=== PATIENT | female | born 1990 | race Hispanic/Latino ===

== ENCOUNTER 2018-10-22 04:40 | Inpatient (IN) | payer OTHER | END 2018-10-29 14:00 | disposition home or self-care (01) | LOC: EDH 04:40 → 3BH 10-24 18:42 → EDHIP 07:48 → 4BH 08:34 | DX: A41.9 Sepsis, unspecified organism (principal); K85.90 Acute pancreatitis without necrosis or infection, unspecified; Z68.41 Body mass index [BMI] 40.0-44.9, adult; E87.1 Hypo-osmolality and hyponatremia; Z68.42 Body mass index [BMI] 45.0-49.9, adult; K86.1 Other chronic pancreatitis; R65.10 Systemic inflammatory response syndrome (SIRS) of non-infectious origin without acute organ dysfunction; E66.01 Morbid (severe) obesity due to excess calories; E11.65 Type 2 diabetes mellitus with hyperglycemia; E78.1 Pure hyperglyceridemia ==

== ENCOUNTER 2019-11-15 09:30 | Inpatient (IN) | payer OTHER ==
[2019-11-15] VITALS (19 sets, daily range): BP systolic 118–152; BP diastolic 39–81
[~2019-11-15] VITALS: Ht 154.9 cm; Wt 107.6 kg
[~2019-11-15 09:30] MED LIST: ATOR40TA69 PO; FENO145T PO; GEMF600T PO; GLIP5TAB11 PO; HYDR-4030 PO; METO25 PO; SERT50TA12 PO; ZOLP5TAB8 PO
[2019-11-15] MEDS ORDERED: ONDANSETRON HCL 4 MG/2 ML VIAL ONE (10:03)
[2019-11-15] MEDS ORDERED: MORPHINE SULFATE 4 MG/1ML SYG ONE ×2 (10:03→11:04)
[2019-11-15 10:12] LABS: BASOPHILS % (AUTO) 0.3 % (0.0-5.0); EOSINOPHILS % (AUTO) 0.2 % (0.0-8.0); HEMATOCRIT 40.3 % (36-48); MEAN CORPUSCULAR HEMOGLOBIN 27.6 pg (27.0-33.0); MEAN CORPUSCULAR HGB CONC 35.7 g/dL (32.0-36.0); MEAN CORPUSCULAR VOLUME 77.2 fL (79-99); MONOCYTES % (AUTO) 4.6 % (3.0-13.0); NEUTROPHILS % (AUTO) 79.2 % (40.0-77.0); PLATELET COUNT (AUTO) 246 K/uL (130-400); RED BLOOD CELL COUNT(AUTO) 5.22 MIL/uL (4.00-5.50); RED CELL DISTRIBUTION WIDTH 15.2 % (11.0-15.5); WHITE BLOOD COUNT (AUTO) 11.6 K/uL (4.8-10.8)
[2019-11-15 10:15] LABS: APPEARANCE,URINE Clear (CLEAR); BILIRUBIN,URINE Negative (NEGATIVE); COLOR,URINE Yellow (YELLOW); GLUCOSE, URINE (UA) >=1000 mg/dL (NEGATIVE); KETONES,URINE 15 mg/dL (NEGATIVE); LEUKOCYTE ESTERASE ,URINE Negative (NEGATIVE); NITRATE,URINE Negative (NEGATIVE); OCCULT BLOOD,URINE Moderate (NEGATIVE); PROTEIN,URINE Negative (NEGATIVE); UROBILINOGEN,URINE 0.2 mg/dL (0.2-1.0)
[2019-11-15 10:24] LABS: BACTERIA,URINE Rare /HPF (None Seen); RBC,URINE 0-1 /HPF (0-1); SQUAMOUS EPITHELIAL CELL,UR Rare /HPF (0-2); WBC,URINE 0-1 /HPF (0-1)
[2019-11-15 10:25] LABS: HCG,QUAL RESULT NEGATIVE (NEGATIVE)
[2019-11-15 10:40] LABS: BILIRUBIN,TOTAL 0.7 mg/dL (0.2-1.0); POTASSIUM 4.1 mmol/L (3.5-5.1)
[2019-11-15 10:57] LABS: CHOLESTEROL 377 mg/dL (<200); LDL DIRECT 80 mg/dL (0-99)
[2019-11-15 10:58] LABS: CREATININE 0.6 mg/dL (0.5-1.5)
[2019-11-15 10:59] LABS: ALBUMIN 3.7 g/dL (3.5-5.0); TOTAL PROTEIN, SERUM 6.5 g/dL (6.0-8.3)
[2019-11-15] MEDS ORDERED: LORAZEPAM 2 MG/ML 1 ML VIAL ONE (11:04)
[2019-11-15 11:07] LABS: ABG OXYGEN SATURATION 79.3 % (95.0-99.0); BASE EXCESS,VENOUS BLOOD GAS -1.2 (-2.0-3.0); HCO3,VENOUS BLOOD GAS 23.9 (21.0-28.0); PCO2,VENOUS BLOOD GAS 41 (32-45)
[2019-11-15 11:34] LABS: HDL CHOLESTEROL 70 mg/dL (35-85); TRIGLYCERIDES 662 mg/dL (30-200)
[2019-11-15] MEDS ORDERED: INSULIN HUMULIN R 100 UNIT/ML 3ML ONE (11:47)
[2019-11-15] MEDS ORDERED: SODIUM CHLORIDE 0.9% 1000ML 1,000 ML IV SCH ×3 (12:09→13:59)
[2019-11-15] MEDS ORDERED: ONDANSETRON HCL 4 MG/2 ML VIAL IV PRN (12:15)
[2019-11-15] MEDS ORDERED: NITROGLYCERIN 0.4 MG SL TAB SL PRN (12:15)
[2019-11-15] MEDS ORDERED: ACETAMINOPHEN 325 MG TAB PO PRN (12:15)
[2019-11-15] MEDS ORDERED: LACTULOSE 20 GM/30 ML UDCUP PO PRN (12:15)
[2019-11-15] MEDS ORDERED: INSULIN HUMULIN R 100 UNIT/ML 3ML SQ SCH ×2 (13:00→16:30)
[2019-11-15] MEDS ORDERED: CALCIUM GLUCONATE 1 GM/10 ML VIAL IV SCH ×2 (13:00→18:00)
[2019-11-15] MEDS ORDERED: CALCIUM GLUCONATE 1 GM in SODIUM CHLORIDE 0.9% 50 ML IV SCH ×2 (13:15→18:00)
[2019-11-15] MEDS ORDERED: DEXTROSE 5 %-0.45 % NACL 1,000 ML IV PRN (13:59)
[2019-11-15] MEDS: SODIUM CHLORIDE 0.9% 1000ML 1,000 ML IV SCH ×2 (14:11→22:11)
[2019-11-15] MEDS ORDERED: PHARMACY COMMUNICATION MISC SCH ×2 (14:15)
[2019-11-15] MEDS ORDERED: DEXTROSE 50%-WATER 50 ML DISP.SYRIN IV PRN (14:15)
[2019-11-15] MEDS ORDERED: GLUCAGON 1MG KIT 1 MG ML IM PRN (14:15)
[2019-11-15] MEDS ORDERED: POTASSIUM CHLORIDE 10MEQ/100ML 100 ML IV PRN (14:15)
[2019-11-15] MEDS ORDERED: MORPHINE SULFATE 2 MG/ML 1ML SYG IVP PRN (14:30)
[2019-11-15 14:44] LABS: POTASSIUM 3.5 mmol/L (3.5-5.1)
[2019-11-15 14:50] LABS: ALCOHOL, BLOOD < 3 mg/dL (0-10); THYROID STIMULATING HORMONE 4.04 uIU/mL (0.36-3.74)
--- NOTE | 2019-11-15 15:00 | NUR ---
HAS RED BUMPS ON BILATERAL KNEES AND SURROUNDING AREA, ALSO BEHIND BOTH UPPER ARMS Addendum: 11/15/19 at 1609 by AKIN RODGERS RN RN Amended: Links added.
[2019-11-15] MEDS: [UNRECOGNIZED DRUG - MIXTURE] SQ PRN ×2 (15:11)
[2019-11-15 15:18] LABS: CREATININE 0.6 mg/dL (0.5-1.5)
[2019-11-15 15:28] LABS: HEMOGLOBIN A1C 14.2 % (4.0-6.0)
[2019-11-15] MEDS: KETOROLAC TROMETHAMINE 15MG/ML IV PRN (15:28)
[2019-11-15 15:33] LABS: MAGNESIUM 1.5 mg/dL (1.80-2.40); PHOSPHORUS 2.7 mg/dL (2.5-4.9)
[2019-11-15] MEDS ORDERED: MAGNESIUM 2GM PREMIX 50ML 50 ML IV SCH (16:15)
[2019-11-15] MEDS ORDERED: SERT100T12 PO (16:17)
--- NOTE | 2019-11-15 16:22 | NUR ---
INITIAL SW spoke with patient's mother, Amor Posada, [phone]. Patient lives with parents and 6 year old son. No home services or DME. 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 She is able to complete ADL's independently and drives as per patient's mother. Mother is not aware of patient having a PCP. Pharmacy is [facility] located on [facility] in [place]. DCP is home. Addendum: 11/15/19 at 1624 by FELIPE WILD Amended: Links added.
[2019-11-15] MEDS ORDERED: MAGNESIUM 2GM PREMIX 50ML 50 ML IV ONE (16:54)
[2019-11-15] MEDS: DEXTROSE 5 %-0.45 % NACL 1,000 ML IV PRN (17:11)
[2019-11-15] MEDS: HYDROMORPHONE HCL 2 MG/ML VIAL IVP PRN ×2 (18:23→23:19)
[2019-11-15 20:38] LABS: POTASSIUM 3.3 mmol/L (3.5-5.1)
[2019-11-15 20:39] LABS: CREATININE 0.4 mg/dL (0.5-1.5)
[2019-11-15] MEDS: FAMOTIDINE/PF 20 MG/2 ML VIAL IV SCH (21:15)
[2019-11-16] VITALS (31 sets, daily range): BP systolic 104–134; BP diastolic 50–85
[2019-11-16 00:31] LABS: CREATININE 0.5 mg/dL (0.5-1.5); POTASSIUM 3.2 mmol/L (3.5-5.1)
[2019-11-16] MEDS: POTASSIUM CHLORIDE 10MEQ/100ML 100 ML IV PRN ×5 (01:30→16:29)
[2019-11-16] MEDS: DEXTROSE 5 %-0.45 % NACL 1,000 ML IV PRN ×3 (01:36→16:02)
[2019-11-16] MEDS: HYDROMORPHONE HCL 2 MG/ML VIAL IVP PRN ×2 (02:23→06:16)
[2019-11-16 04:14] LABS: BASOPHILS % (AUTO) 0.3 % (0.0-5.0); EOSINOPHILS % (AUTO) 1.1 % (0.0-8.0); HEMATOCRIT 34.4 % (36-48); LYMPHOCYTES % (AUTO) 22.3 % (21.0-51.0); MEAN CORPUSCULAR HEMOGLOBIN 26.3 pg (27.0-33.0); MEAN CORPUSCULAR HGB CONC 32.8 g/dL (32.0-36.0); NEUTROPHILS % (AUTO) 69.5 % (40.0-77.0); PLATELET COUNT (AUTO) 173 K/uL (130-400); RED CELL DISTRIBUTION WIDTH 15.4 % (11.0-15.5); WHITE BLOOD COUNT (AUTO) 7.4 K/uL (4.8-10.8)
[2019-11-16 04:48] LABS: ALBUMIN 2.6 g/dL (3.5-5.0); BILIRUBIN,TOTAL 0.2 mg/dL (0.2-1.0); CREATININE 0.6 mg/dL (0.5-1.5); CRP QUANTITATIVE 167.1 mg/L (0.00-9.0); POTASSIUM 3.3 mmol/L (3.5-5.1); TOTAL PROTEIN, SERUM 6.4 g/dL (6.0-8.3)
[2019-11-16] MEDS: SODIUM CHLORIDE 0.9% 1000ML 1,000 ML IV SCH ×3 (06:11→22:11)
[2019-11-16] MEDS: [UNRECOGNIZED DRUG - MIXTURE] SQ PRN ×2 (08:12)
[2019-11-16] MEDS: ENOXAPARIN SODIUM 30 MG/0.3 ML SQ SCH (08:31)
[2019-11-16] MEDS: FAMOTIDINE/PF 20 MG/2 ML VIAL IV SCH ×2 (08:31→21:34)
[2019-11-16] MEDS: KETOROLAC TROMETHAMINE 15MG/ML IV PRN (10:07)
[2019-11-16] MEDS: HYDROMORPHONE 1 MG/1 ML AMP IVP PRN ×4 (10:35→23:02)
[2019-11-16 10:41] LABS: CREATININE 0.5 mg/dL (0.5-1.5); POTASSIUM 3.7 mmol/L (3.5-5.1)
[2019-11-16 14:29] LABS: CREATININE 0.6 mg/dL (0.5-1.5); POTASSIUM 3.4 mmol/L (3.5-5.1)
--- NOTE | 2019-11-16 15:15 | NUR ---
REC'D REPORT FROM JOAQUIN HICKS RN
[2019-11-16] MEDS ORDERED: POTASSIUM CHLORIDE 10MEQ/100ML 10 MEQ/100 ML ML IV SCH (16:15)
[2019-11-16] MEDS ORDERED: GEMFIBROZIL 600 MG TABLET PO SCH (16:30)
[2019-11-16] MEDS ORDERED: POTASSIUM CHLORIDE 40 MEQ in SODIUM CHLORIDE 0.9% 1000ML 980 ML IV SCH (17:00)
[2019-11-16] MEDS ORDERED: POTASSIUM CHLORIDE IV SCH (17:15)
[2019-11-16] MEDS ORDERED: DEXTROSE IV SCH (17:15)
[2019-11-16] MEDS ORDERED: NACL IV SCH (17:15)
[2019-11-16 18:22] LABS: CREATININE 0.6 mg/dL (0.5-1.5); POTASSIUM 3.6 mmol/L (3.5-5.1)
[2019-11-16] MEDS: FISH OIL 1000 MG/CAP PO SCH (21:34)
[2019-11-16 23:51] LABS: CREATININE 0.6 mg/dL (0.5-1.5); POTASSIUM 3.5 mmol/L (3.5-5.1)
[2019-11-17] VITALS (24 sets, daily range): BP systolic 102–143; BP diastolic 41–95
[2019-11-17] MEDS: DEXTROSE 5 %-0.45 % NACL 1,000 ML IV PRN ×4 (00:08→21:49)
[2019-11-17 04:24] LABS: BASOPHILS % (AUTO) 0.2 % (0.0-5.0); EOSINOPHILS % (AUTO) 1.2 % (0.0-8.0); HEMATOCRIT 31.7 % (36-48); LYMPHOCYTES % (AUTO) 27.3 % (21.0-51.0); MEAN CORPUSCULAR HEMOGLOBIN 25.3 pg (27.0-33.0); MEAN CORPUSCULAR HGB CONC 31.9 g/dL (32.0-36.0); MEAN CORPUSCULAR VOLUME 79.4 fL (79-99); MONOCYTES % (AUTO) 5.9 % (3.0-13.0); NEUTROPHILS % (AUTO) 64.9 % (40.0-77.0); PLATELET COUNT (AUTO) 150 K/uL (130-400); RED BLOOD CELL COUNT(AUTO) 3.99 MIL/uL (4.00-5.50); RED CELL DISTRIBUTION WIDTH 15.4 % (11.0-15.5)
[2019-11-17 04:48] LABS: ALBUMIN 2.3 g/dL (3.5-5.0); BILIRUBIN,TOTAL 0.2 mg/dL (0.2-1.0); CREATININE 0.6 mg/dL (0.5-1.5); POTASSIUM 3.2 mmol/L (3.5-5.1); TOTAL PROTEIN, SERUM 6.2 g/dL (6.0-8.3)
[2019-11-17] MEDS: SODIUM CHLORIDE 0.9% 1000ML 1,000 ML IV SCH ×3 (05:02→22:11)
[2019-11-17] MEDS: HYDROMORPHONE 1 MG/1 ML AMP IVP PRN ×5 (06:17→23:13)
[2019-11-17] MEDS: POTASSIUM CHLORIDE 10MEQ/100ML 100 ML IV PRN ×2 (06:20→08:30)
[2019-11-17] MEDS: ENOXAPARIN SODIUM 30 MG/0.3 ML SQ SCH (08:43)
[2019-11-17] MEDS: ATORVASTATIN CALCIUM 40 MG TABLET PO SCH (08:43)
[2019-11-17] MEDS: FAMOTIDINE/PF 20 MG/2 ML VIAL IV SCH ×2 (09:20→21:49)
[2019-11-17] MEDS: FISH OIL 1000 MG/CAP PO SCH ×2 (09:22→21:30)
[2019-11-17 11:59] LABS: CREATININE 0.6 mg/dL (0.5-1.5); POTASSIUM 3.8 mmol/L (3.5-5.1)
[2019-11-17] MEDS ORDERED: BENZOCAINE/MENTH/CETYLPYRD CL 1 EACH LOZENGE MM PRN (12:00)
[2019-11-17] MEDS: [UNRECOGNIZED DRUG - MIXTURE] SQ PRN ×2 (12:13)
--- NOTE | 2019-11-17 17:20 | NUR ---
DR FRANZ AT BEDSIDE, NEW ORDERS GIVEN TO CHANGE INSULIN DRIP TO 0.1 UNITS/KG/HR, EQUIVALENT TO 10.79 ML/HR, ORDERS GIVEN NOT TO TITRATE, KEEP AT THIS FIXED RATE
[2019-11-18] VITALS (22 sets, daily range): BP systolic 98–131; BP diastolic 6–79
[2019-11-18] MEDS: [UNRECOGNIZED DRUG - MIXTURE] SQ PRN ×4 (01:36→20:54)
[2019-11-18 03:50] LABS: BASOPHILS % (AUTO) 0.2 % (0.0-5.0); HEMATOCRIT 31.1 % (36-48); LYMPHOCYTES % (AUTO) 28.2 % (21.0-51.0); MEAN CORPUSCULAR HEMOGLOBIN 25.3 pg (27.0-33.0); MEAN CORPUSCULAR HGB CONC 31.5 g/dL (32.0-36.0); MEAN CORPUSCULAR VOLUME 80.4 fL (79-99); MONOCYTES % (AUTO) 5.4 % (3.0-13.0); NEUTROPHILS % (AUTO) 64.6 % (40.0-77.0); PLATELET COUNT (AUTO) 157 K/uL (130-400); RED BLOOD CELL COUNT(AUTO) 3.87 MIL/uL (4.00-5.50); RED CELL DISTRIBUTION WIDTH 15.3 % (11.0-15.5); WHITE BLOOD COUNT (AUTO) 5.2 K/uL (4.8-10.8)
[2019-11-18] MEDS: HYDROMORPHONE 1 MG/1 ML AMP IVP PRN ×3 (03:50→12:59)
[2019-11-18 04:12] LABS: ALBUMIN 2.1 g/dL (3.5-5.0); BILIRUBIN,TOTAL 0.2 mg/dL (0.2-1.0); CREATININE 0.6 mg/dL (0.5-1.5)
[2019-11-18] MEDS: POTASSIUM CHLORIDE 10MEQ/100ML 100 ML IV PRN ×2 (04:44→07:16)
--- NOTE | 2019-11-18 04:45 | NUR ---
HYPOKALEMIA PROTOCOL K+ this am at 3.0, started on hypokalemia protocol, 10meq kcl bag in 100 cc NS infused with the main IVF, pt to get 2 bags as per protocol.
[2019-11-18] MEDS: SODIUM CHLORIDE 0.9% 1000ML 1,000 ML IV SCH ×3 (06:11→22:11)
--- NOTE | 2019-11-18 06:39 | NUR ---
PATIENT UPDATE Pt continues to ask for pain meds consistently q 4 hrs. Pain mostly on the left lower quadrant radiating to the back. Keeping npo except for po meds. No nausea and vomiting, gets up to the bathroom per self. Continues on the insulin drip as ordered by Dr. Gomez at a set rate of 0.01 units per kg/hr until the triglycerides gets to be less than 500, today down to 959 fr 1,237 yesterday and with the lipase down to 269 this am from 943 yesterday.
[2019-11-18] MEDS: ATORVASTATIN CALCIUM 40 MG TABLET PO SCH (08:15)
[2019-11-18] MEDS: FISH OIL 1000 MG/CAP PO SCH ×2 (08:15→19:52)
[2019-11-18] MEDS: ENOXAPARIN SODIUM 30 MG/0.3 ML SQ SCH (08:15)
[2019-11-18] MEDS: DEXTROSE 5 %-0.45 % NACL 1,000 ML IV PRN ×3 (08:44→23:03)
[2019-11-18] MEDS: FAMOTIDINE/PF 20 MG/2 ML VIAL IV SCH ×2 (12:35→19:52)
[2019-11-18] MEDS ORDERED: HYDROMORPHONE 1 MG/1 ML AMP IVP PRN (15:30)
[2019-11-18] MEDS: GEMFIBROZIL 600 MG TABLET PO SCH (17:45)
[2019-11-18] MEDS ORDERED: KETOROLAC TROMETHAMINE 15MG/ML IV PRN (20:30)
[2019-11-18] MEDS: HYDROXYZINE HCL 25 MG TABLET PO SCH (21:00)
[2019-11-18] MEDS: ZOLPIDEM TARTRATE 5 MG TAB PO SCH (21:19)
[2019-11-18] MEDS: SERTRALINE HCL 50 MG TABLET PO SCH (21:19)
[2019-11-19] VITALS (24 sets, daily range): BP systolic 109–145; BP diastolic 56–89
[2019-11-19 06:11] LABS: BASOPHILS % (AUTO) 0.2 % (0.0-5.0); HEMATOCRIT 31.8 % (36-48); LYMPHOCYTES % (AUTO) 23.9 % (21.0-51.0); MEAN CORPUSCULAR HEMOGLOBIN 24.7 pg (27.0-33.0); MEAN CORPUSCULAR HGB CONC 31.1 g/dL (32.0-36.0); MEAN CORPUSCULAR VOLUME 79.3 fL (79-99); MONOCYTES % (AUTO) 6.4 % (3.0-13.0); NEUTROPHILS % (AUTO) 67.9 % (40.0-77.0); PLATELET COUNT (AUTO) 147 K/uL (130-400); RED BLOOD CELL COUNT(AUTO) 4.01 MIL/uL (4.00-5.50); RED CELL DISTRIBUTION WIDTH 15.2 % (11.0-15.5); WHITE BLOOD COUNT (AUTO) 4.8 K/uL (4.8-10.8)
[2019-11-19] MEDS: SODIUM CHLORIDE 0.9% 1000ML 1,000 ML IV SCH ×3 (06:11→21:29)
[2019-11-19 06:25] LABS: CREATININE 0.6 mg/dL (0.5-1.5)
[2019-11-19 06:30] LABS: POTASSIUM 2.9 mmol/L (3.5-5.1)
[2019-11-19] MEDS: GEMFIBROZIL 600 MG TABLET PO SCH ×2 (08:22→16:50)
[2019-11-19] MEDS: FISH OIL 1000 MG/CAP PO SCH ×2 (08:22→20:25)
[2019-11-19] MEDS: ATORVASTATIN CALCIUM 40 MG TABLET PO SCH (08:22)
[2019-11-19] MEDS: HYDROXYZINE HCL 25 MG TABLET PO SCH ×3 (08:23→20:25)
[2019-11-19] MEDS: FAMOTIDINE/PF 20 MG/2 ML VIAL IV SCH ×2 (08:23→20:30)
[2019-11-19] MEDS: POTASSIUM CHLORIDE 10MEQ/100ML 100 ML IV PRN ×2 (08:23→09:27)
[2019-11-19] MEDS: ENOXAPARIN SODIUM 30 MG/0.3 ML SQ SCH (08:23)
[2019-11-19] MEDS ORDERED: POTASSIUM CHLORIDE 20 MEQ ERTAB PO SCH (08:30)
[2019-11-19] MEDS ORDERED: MAGNESIUM 2GM PREMIX 50ML 50 ML IV PRN (09:30)
[2019-11-19] MEDS: DEXTROSE 5 %-0.45 % NACL 1,000 ML IV PRN ×2 (10:05→18:17)
[2019-11-19 12:45] LABS: POTASSIUM 3.5 mmol/L (3.5-5.1)
--- NOTE | 2019-11-19 19:30 | NUR ---
PT CONTINUES ON INSULIN DRIP. AAO3. PERRLA. NO DISTRESS NOTED. PT IS STABLE. Q2 BLOOD SUGAR CHECKS. CLEAR LUNG SOUNDS. PT IS CALM, AND WATCHING TV. NPO EXCEPT MEDS.
[2019-11-19] MEDS: SERTRALINE HCL 50 MG TABLET PO SCH (20:25)
[2019-11-19] MEDS: ZOLPIDEM TARTRATE 5 MG TAB PO SCH (20:25)
[2019-11-20] VITALS (17 sets, daily range): BP systolic 119–150; BP diastolic 63–87
[2019-11-20] MEDS: DEXTROSE 5 %-0.45 % NACL 1,000 ML IV PRN ×2 (02:48→10:56)
[2019-11-20] MEDS: [UNRECOGNIZED DRUG - MIXTURE] SQ PRN ×2 (03:24)
[2019-11-20] MEDS: GEMFIBROZIL 600 MG TABLET PO SCH (06:45)
[2019-11-20] MEDS: HYDROXYZINE HCL 25 MG TABLET PO SCH ×3 (08:02→21:04)
[2019-11-20] MEDS: ATORVASTATIN CALCIUM 40 MG TABLET PO SCH (08:02)
[2019-11-20] MEDS: FISH OIL 1000 MG/CAP PO SCH ×2 (08:02→21:03)
[2019-11-20] MEDS: FAMOTIDINE/PF 20 MG/2 ML VIAL IV SCH ×2 (08:04→21:03)
[2019-11-20] MEDS: ENOXAPARIN SODIUM 30 MG/0.3 ML SQ SCH (08:04)
--- NOTE | 2019-11-20 09:30 | NUR ---
DR. Jyotsna MANE IN ROOM SPEAKING WITH PT. RE:PLAN OF CARE; QUESTIONS ANSWERED BY DR. MANE. PT. VERBALIZED UNDERSTANDING.
--- NOTE | 2019-11-20 10:50 | NUR ---
DR. WELLINGTON IN ROOM SPEAKING WITH PT. RE:PLAN OF CARE. QUESTIONS ANSWERED AND PT. VERBALIZED UNDERSTANDING.
[2019-11-20] MEDS: INSULIN GLARGINE 100 UNITS/ML 10 ML VIAL SQ SCH (13:01)
[2019-11-20] MEDS: INSULIN LISPRO 100 UNIT/ML 3ML SQ SCH (17:22)
--- NOTE | 2019-11-20 17:26 | NUR ---
REPORT TO Cleo ROSAS RN.
--- NOTE | 2019-11-20 17:58 | NUR ---
TRANSFERRED TO ROOM 326 VIA W/C WITH BELONGINGS. ACCOMPANIED BY Ted HICKS RN AND JOSE R BAPTISTE.
[2019-11-20] MEDS: SERTRALINE HCL 50 MG TABLET PO SCH (21:03)
[2019-11-20] MEDS: ZOLPIDEM TARTRATE 5 MG TAB PO SCH (21:04)
[2019-11-21] VITALS (7 sets, daily range): BP systolic 110–132; BP diastolic 70–84
[2019-11-21] MEDS: ATORVASTATIN CALCIUM 40 MG TABLET PO SCH (08:02)
[2019-11-21] MEDS: FISH OIL 1000 MG/CAP PO SCH ×2 (08:02→20:03)
[2019-11-21] MEDS: FAMOTIDINE/PF 20 MG/2 ML VIAL IV SCH ×2 (08:02→20:02)
[2019-11-21] MEDS: ENOXAPARIN SODIUM 30 MG/0.3 ML SQ SCH (08:03)
[2019-11-21] MEDS: INSULIN GLARGINE 100 UNITS/ML 10 ML VIAL SQ SCH (08:09)
[2019-11-21] MEDS: HYDROXYZINE HCL 25 MG TABLET PO SCH ×3 (08:13→20:03)
[2019-11-21] MEDS: FENOFIBRATE NANOCRYSTALLIZED 145 MG TAB PO SCH (08:14)
[2019-11-21] MEDS: INSULIN LISPRO 100 UNIT/ML 3ML SQ SCH ×3 (08:41→16:56)
[2019-11-21] MEDS: INSULIN HUMULIN R 100 UNIT/ML 3ML SQ SCH ×3 (11:30→20:03)
--- NOTE | 2019-11-21 14:47 | NUR ---
RY SCREEN - LOS X 6 Pt admitted for acute pancreatitis, hypertriglyceridemia. Pt tolerating Clear Liquid diet order with no report of GI distress, fair PO intake at 50%, felt full. Pt refusal of nutrition education, desires to follow keto diet. Low fat recommended with pancreatitis. Recommend to advance as tolerated to GI soft/[place], 75gm, Low fat diet order. RD to continue to monitor. Addendum: 11/21/19 at [address] RD Amended: Links added.
--- NOTE | 2019-11-21 14:55 | NUR ---
NUTRITION EDUCATION RD attempt to provided Pancreatitis, Diabetes, Weight loss nutrition education. Pt refusal of nutrition education, and states will follow Ketogenic diet, monitored by MD. RD recommendation of low fat foods with pancreatitis. Pt verbalized understanding. Addendum: 11/21/19 at [address] RD Amended: Links added.
[2019-11-21 17:07] LABS: BASOPHILS % (AUTO) 0.6 % (0.0-5.0); HEMATOCRIT 34.8 % (36-48); LYMPHOCYTES % (AUTO) 30.8 % (21.0-51.0); MEAN CORPUSCULAR HEMOGLOBIN 25.2 pg (27.0-33.0); MEAN CORPUSCULAR HGB CONC 31.9 g/dL (32.0-36.0); MEAN CORPUSCULAR VOLUME 78.9 fL (79-99); NEUTROPHILS % (AUTO) 59.2 % (40.0-77.0); PLATELET COUNT (AUTO) 179 K/uL (130-400); RED BLOOD CELL COUNT(AUTO) 4.41 MIL/uL (4.00-5.50)
[2019-11-21 17:32] LABS: ALBUMIN 2.8 g/dL (3.5-5.0); BILIRUBIN,TOTAL 0.4 mg/dL (0.2-1.0); MAGNESIUM 1.5 mg/dL (1.80-2.40); PHOSPHORUS 5.7 mg/dL (2.5-4.9); POTASSIUM 3.8 mmol/L (3.5-5.1); TOTAL PROTEIN, SERUM 7.1 g/dL (6.0-8.3)
[2019-11-21 17:40] LABS: CREATININE 0.7 mg/dL (0.5-1.5)
[2019-11-21] MEDS: SERTRALINE HCL 50 MG TABLET PO SCH (20:03)
[2019-11-21] MEDS: ZOLPIDEM TARTRATE 5 MG TAB PO SCH (20:03)
[2019-11-21] MEDS: HYDROMORPHONE 1 MG/1 ML AMP IVP PRN ×2 (20:09→23:32)
[2019-11-22] MEDS: HYDROMORPHONE 1 MG/1 ML AMP IVP PRN (03:05)
[2019-11-22 04:01] VITALS: BP 133/70
[2019-11-22] MEDS: INSULIN HUMULIN R 100 UNIT/ML 3ML SQ SCH ×2 (04:51→11:27)
[2019-11-22 07:30] VITALS: BP 138/77
[2019-11-22] MEDS: FISH OIL 1000 MG/CAP PO SCH (08:41)
[2019-11-22] MEDS: FENOFIBRATE NANOCRYSTALLIZED 145 MG TAB PO SCH (08:41)
[2019-11-22] MEDS: ENOXAPARIN SODIUM 30 MG/0.3 ML SQ SCH (08:41)
[2019-11-22] MEDS: ATORVASTATIN CALCIUM 40 MG TABLET PO SCH (08:41)
[2019-11-22] MEDS: HYDROXYZINE HCL 25 MG TABLET PO SCH ×2 (08:41→14:12)
[2019-11-22] MEDS: FAMOTIDINE/PF 20 MG/2 ML VIAL IV SCH (08:41)
[2019-11-22] MEDS: INSULIN LISPRO 100 UNIT/ML 3ML SQ SCH ×2 (08:48→12:02)
[2019-11-22] MEDS ORDERED: INSULIN GLARGINE 100 UNITS/ML 10 ML VIAL SQ SCH (09:00)
[2019-11-22 11:00] VITALS: BP 128/69
[2019-11-22] MEDS ORDERED: INSU3INS3 SQ (11:33)
[2019-11-22] MEDS ORDERED: INSU100I3 SQ (11:33)
[2019-11-22] MEDS ORDERED: FENO145T PO (11:33)
[2019-11-22] MEDS ORDERED: FISH1CAP20 PO (11:33)
[2019-11-22] MEDS ORDERED: ATOR40TA69 PO (11:33)
--- NOTE | 2019-11-22 16:20 | NUR ---
PATIENT DISCHARGE PATIENT DISCHARGED, IV X2 DISCONTINUED, CATHLON INTACT, BLEEDING CONTROLLED, PATIENT TOLERATED WITHOUT INCIDENT.
== END 2019-11-22 16:45 | disposition home or self-care (01) | DRG 438 ==
LOC: EDH 09:30 → EDHIP 12:09 → 2DH 13:50 → 2BH 14:41 → DAHIP 11-16 15:29 → 3DH 11-20 17:36
PROVIDERS: ADMIT Internal Medicine; ATTEND Internal Medicine
DX: K85.90 Acute pancreatitis without necrosis or infection, unspecified (principal); E11.10 Type 2 diabetes mellitus with ketoacidosis without coma; Z68.41 Body mass index [BMI] 40.0-44.9, adult; E87.1 Hypo-osmolality and hyponatremia; K76.0 Fatty (change of) liver, not elsewhere classified; R16.2 Hepatomegaly with splenomegaly, not elsewhere classified; F41.8 Other specified anxiety disorders; D72.828 Other elevated white blood cell count; E66.01 Morbid (severe) obesity due to excess calories; E78.00 Pure hypercholesterolemia, unspecified; E78.1 Pure hyperglyceridemia; E78.49 Other hyperlipidemia; E83.51 Hypocalcemia; E86.1 Hypovolemia; I10 Essential (primary) hypertension; K86.1 Other chronic pancreatitis; Z79.4 Long term (current) use of insulin; Z79.84 Long term (current) use of oral hypoglycemic drugs; Z79.899 Other long term (current) drug therapy; Z91.19 Patient's noncompliance with other medical treatment and regimen; Z90.49 Acquired absence of other specified parts of digestive tract; Z83.3 Family history of diabetes mellitus
CPT/HCPCS: 36415; 36600; 74176; 76705; 80048; 80053; 80061; 81001; 81025; 82010; 82150; 82435; 82803; 82947; 82948; 83036; 83605; 83690; 83735; 83970; 84100; 84132; 84145; 84295; 84443; 84478; 85025; 86140; G0378; G0480; J0610; J1170; J1650; J1815; J1885; J2060; J2270; J2405; J3475; J3480; J3490; J7030; J7042

== ENCOUNTER 2020-04-03 15:56 | Inpatient (IN) | payer OTHER ==
[~2020-04-03] VITALS: Ht 154.9 cm; Wt 107.0 kg
[~2020-04-03 15:56] MED LIST changes: +FISH1CAP20 PO; -GEMF600T PO; -GLIP5TAB11 PO; +INSU100I3 SQ; +INSU3INS3 SQ; -METO25 PO; +SERT100T12 PO; -SERT50TA12 PO
[2020-04-03] MEDS ORDERED: ONDANSETRON HCL 4 MG/2 ML VIAL ONE (16:33)
[2020-04-03] MEDS ORDERED: MORPHINE SULFATE 4 MG/1ML SYG ONE ×2 (16:33→19:06)
[2020-04-03 17:14] LABS: POTASSIUM 3.3 mmol/L (3.5-5.1)
[2020-04-03 17:18] LABS: BASOPHILS % (AUTO) 0.4 % (0.0-5.0); EOSINOPHILS % (AUTO) 0.7 % (0.0-8.0); HEMATOCRIT 40.8 % (36-48); LYMPHOCYTES % (AUTO) 20.8 % (21.0-51.0); MEAN CORPUSCULAR HEMOGLOBIN 24.9 pg (27.0-33.0); MEAN CORPUSCULAR HGB CONC 33.1 g/dL (32.0-36.0); MEAN CORPUSCULAR VOLUME 75.1 fL (79-99); MONOCYTES % (AUTO) 4.5 % (3.0-13.0); NEUTROPHILS % (AUTO) 72.3 % (40.0-77.0); RED BLOOD CELL COUNT(AUTO) 5.43 MIL/uL (4.00-5.50); RED CELL DISTRIBUTION WIDTH 17.4 % (11.0-15.5); WHITE BLOOD COUNT (AUTO) 17.5 K/uL (4.8-10.8)
[2020-04-03 17:19] LABS: PLATELET COUNT (AUTO) 486 K/uL (130-400)
[2020-04-03 18:19] LABS: BILIRUBIN,DIRECT 0.1 mg/dL (0.0-0.3); BILIRUBIN,TOTAL 0.2 mg/dL (0.2-1.0)
[2020-04-03 18:20] LABS: ALBUMIN 3.5 g/dL (3.5-5.0); TOTAL PROTEIN, SERUM 6.6 g/dL (6.0-8.3)
[2020-04-03 18:27] LABS: CREATININE 0.4 mg/dL (0.5-1.5)
[2020-04-03] MEDS ORDERED: POTASSIUM CHLORIDE 20MEQ/100ML 100 ML IV ONE (18:27)
[2020-04-03] MEDS ORDERED: LIDOCAINE HCL-MPF 1% 2ML VIAL ONE (18:28)
[2020-04-03] MEDS ORDERED: INSULIN HUMULIN R 100 UNIT/ML 3ML ONE ×2 (18:28→21:02)
[2020-04-03] MEDS ORDERED: MAGNESIUM 2GM PREMIX 50ML 50 ML IV ONE (19:01)
[2020-04-03 19:10] LABS: APPEARANCE,URINE Cloudy (CLEAR); BILIRUBIN,URINE Negative (NEGATIVE); COLOR,URINE Yellow (YELLOW); GLUCOSE, URINE (UA) >=1000 mg/dL (NEGATIVE); KETONES,URINE >=80 mg/dL (NEGATIVE); LEUKOCYTE ESTERASE ,URINE Negative (NEGATIVE); NITRATE,URINE Negative (NEGATIVE); OCCULT BLOOD,URINE Negative (NEGATIVE); PROTEIN,URINE 300 mg/dL (NEGATIVE)
[2020-04-03 19:16] LABS: HCG,QUAL RESULT NEGATIVE (NEGATIVE)
[2020-04-03 19:21] LABS: BACTERIA,URINE Few /HPF (None Seen)
[2020-04-03 19:22] LABS: MUCUS,URINE Few LPF (None Seen); SQUAMOUS EPITHELIAL CELL,UR Moderate /HPF (0-2)
[2020-04-03] MEDS ORDERED: IOHEXOL-350 75 ML VIAL IV ONE (19:29)
[2020-04-03] MEDS ORDERED: LACTATED RINGERS 1000ML 1,000 ML IV SCH (19:51)
[2020-04-03] MEDS ORDERED: HYDROMORPHONE HCL 2 MG/ML VIAL IVP PRN (20:00)
[2020-04-03] MEDS: CEFTRIAXONE SODIUM 1 GM IV SCH (20:00)
[2020-04-03] MEDS: METRONIDAZOLE 500MG/100ML BAG 100 ML IV SCH (20:00)
[2020-04-03] MEDS ORDERED: HYDROMORPHONE 1 MG/1 ML AMP ONE ×2 (20:03→23:36)
[2020-04-03] MEDS: LACTATED RINGERS 1000ML 1,000 ML IV SCH (20:15)
[2020-04-03] MEDS ORDERED: FAMOTIDINE/PF 20 MG/2 ML VIAL IV ONE (20:54)
[2020-04-03] MEDS ORDERED: METRONIDAZOLE 500MG/100ML BAG 100 ML ONE (20:54)
[2020-04-03] MEDS ORDERED: CEFTRIAXONE SODIUM 1 GM ONE (20:54)
[2020-04-03] MEDS: ZOLPIDEM TARTRATE 5 MG TAB PO SCH (21:00)
[2020-04-03] MEDS: FAMOTIDINE/PF 20 MG/2 ML VIAL IV SCH (21:00)
[2020-04-03] MEDS ORDERED: ZOLPIDEM TARTRATE 5 MG TAB ONE (21:29)
[2020-04-03 22:46] LABS: POTASSIUM 3.4 mmol/L (3.5-5.1)
[2020-04-04] VITALS (7 sets, daily range): BP systolic 119–143; BP diastolic 70–78
[2020-04-04] MEDS: LACTATED RINGERS 1000ML 1,000 ML IV SCH ×2 (00:15→06:13)
[2020-04-04 00:36] LABS: CREATININE 0.5 mg/dL (0.5-1.5)
[2020-04-04] MEDS: INSULIN HUMULIN R 100 UNIT/ML 3ML SQ SCH ×5 (01:10→23:34)
[2020-04-04] MEDS: HYDROMORPHONE HCL 2 MG/ML VIAL IVP PRN ×6 (03:22→23:35)
[2020-04-04 05:58] LABS: HEMATOCRIT 37.7 % (36-48); MEAN CORPUSCULAR HEMOGLOBIN 27.8 pg (27.0-33.0); MEAN CORPUSCULAR HGB CONC 37.4 g/dL (32.0-36.0); MEAN CORPUSCULAR VOLUME 74.4 fL (79-99); RED BLOOD CELL COUNT(AUTO) 5.07 MIL/uL (4.00-5.50); RED CELL DISTRIBUTION WIDTH 17.4 % (11.0-15.5); WHITE BLOOD COUNT (AUTO) 9.7 K/uL (4.8-10.8)
[2020-04-04] MEDS: METRONIDAZOLE 500MG/100ML BAG 100 ML IV SCH ×3 (06:18→19:25)
[2020-04-04 06:35] LABS: ALBUMIN 2.4 g/dL (3.5-5.0); BILIRUBIN,TOTAL 0.6 mg/dL (0.2-1.0); MAGNESIUM 1.7 mg/dL (1.80-2.40); POTASSIUM 3.4 mmol/L (3.5-5.1)
[2020-04-04 07:24] LABS: CREATININE 0.4 mg/dL (0.5-1.5); TOTAL PROTEIN, SERUM 5.9 g/dL (6.0-8.3)
[2020-04-04] MEDS: SODIUM CHLORIDE 0.9% 1000ML 1,000 ML IV SCH ×2 (08:58→16:03)
[2020-04-04] MEDS: FAMOTIDINE/PF 20 MG/2 ML VIAL IV SCH ×2 (08:58→19:25)
[2020-04-04] MEDS: SERTRALINE HCL 50 MG TABLET PO SCH (09:00)
[2020-04-04] MEDS: ONDANSETRON HCL 4 MG/2 ML VIAL IVP PRN ×2 (10:12→19:25)
--- NOTE | 2020-04-04 16:27 | NUR ---
CM NOTE/IA PER PATIENT, LIVES WITH FAMILY, INDEPENDENT WITH ADLS, NO USE OF DME OR HOME HEALTH, HAS USE OF [facility] [address] AND FEELS SAFE TO RETURN HOME ONCE DISCHARGED. Addendum: 04/05/20 at 0923 by ROBERTO HICKS RN CM Amended: Links added.
[2020-04-04] MEDS: CEFTRIAXONE SODIUM 1 GM IV SCH (19:25)
[2020-04-04] MEDS ORDERED: INSULIN GLARGINE 100 UNITS/ML 10 ML VIAL SQ SCH (21:00)
[2020-04-04] MEDS: ZOLPIDEM TARTRATE 5 MG TAB PO SCH (21:26)
[2020-04-05] MEDS: SODIUM CHLORIDE 0.9% 1000ML 1,000 ML IV SCH ×3 (03:00→17:33)
[2020-04-05] MEDS: HYDROMORPHONE HCL 2 MG/ML VIAL IVP PRN (03:52)
[2020-04-05 04:23] VITALS: BP 132/74
[2020-04-05] MEDS: METRONIDAZOLE 500MG/100ML BAG 100 ML IV SCH ×3 (05:28→20:39)
[2020-04-05] MEDS: INSULIN HUMULIN R 100 UNIT/ML 3ML SQ SCH ×3 (06:24→17:32)
[2020-04-05 07:23] LABS: BILIRUBIN,TOTAL 0.3 mg/dL (0.2-1.0); CREATININE 0.4 mg/dL (0.5-1.5); TOTAL PROTEIN, SERUM 6.3 g/dL (6.0-8.3)
[2020-04-05 07:30] VITALS: BP 127/76
[2020-04-05 07:32] LABS: HEMOGLOBIN A1C 13.6 % (4.0-6.0); POTASSIUM 2.9 mmol/L (3.5-5.1)
[2020-04-05 07:45] LABS: BASOPHILS % (AUTO) 0.3 % (0.0-5.0); EOSINOPHILS % (AUTO) 0.3 % (0.0-8.0); HEMATOCRIT 30.1 % (36-48); LYMPHOCYTES % (AUTO) 14.8 % (21.0-51.0); MEAN CORPUSCULAR HEMOGLOBIN 25.4 pg (27.0-33.0); MEAN CORPUSCULAR HGB CONC 34.6 g/dL (32.0-36.0); MEAN CORPUSCULAR VOLUME 73.4 fL (79-99); MONOCYTES % (AUTO) 3.8 % (3.0-13.0); NEUTROPHILS % (AUTO) 80.3 % (40.0-77.0); PLATELET COUNT (AUTO) 270 K/uL (130-400); RED CELL DISTRIBUTION WIDTH 16.7 % (11.0-15.5); WHITE BLOOD COUNT (AUTO) 7.6 K/uL (4.8-10.8)
[2020-04-05] MEDS: HYDROMORPHONE 1 MG/1 ML AMP IVP PRN ×4 (07:52→20:40)
[2020-04-05] MEDS: FAMOTIDINE/PF 20 MG/2 ML VIAL IV SCH ×2 (07:52→20:40)
[2020-04-05] MEDS: SERTRALINE HCL 50 MG TABLET PO SCH (09:00)
[2020-04-05 11:00] VITALS: BP 127/78
[2020-04-05] MEDS ORDERED: LIDOCAINE HCL-MPF 1% 2ML VIAL IV PRN (11:15)
[2020-04-05] MEDS: POTASSIUM CHLORIDE 20MEQ/100ML 100 ML IV PRN ×3 (11:49→22:01)
[2020-04-05 16:00] VITALS: BP 126/72
[2020-04-05 20:29] VITALS: BP 124/70
[2020-04-05] MEDS: CEFTRIAXONE SODIUM 1 GM IV SCH (20:40)
[2020-04-05] MEDS: ZOLPIDEM TARTRATE 5 MG TAB PO SCH (20:40)
--- NOTE | 2020-04-05 22:45 | NUR ---
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 PT CURRENTLY HAS IV BAG OF POTASSIUM INFUSING PER MAR. PENDING ONCALL TO RETURN PAGE.
[2020-04-05 23:41] VITALS: BP 133/68
[2020-04-06] MEDS: INSULIN HUMULIN R 100 UNIT/ML 3ML SQ SCH ×4 (00:05→18:00)
[2020-04-06] MEDS: HYDROMORPHONE HCL 2 MG/ML VIAL IVP PRN ×3 (00:09→13:52)
[2020-04-06] MEDS: METRONIDAZOLE 500MG/100ML BAG 100 ML IV SCH ×3 (03:29→20:27)
[2020-04-06] MEDS: POTASSIUM CHLORIDE 20MEQ/100ML 100 ML IV PRN (03:30)
[2020-04-06 03:33] VITALS: BP 116/70
[2020-04-06] MEDS: HYDROMORPHONE 1 MG/1 ML AMP IVP PRN ×3 (03:48→22:37)
--- NOTE | 2020-04-06 04:34 | NUR ---
PAIN HAS BEEN REPORTED THROUGHOUT THE NIGHT. PT REPORTS ONLY TEMPORARY RELIEF FOR A SHORT WHILE BEFORE PAIN RETURNS. PAIN LOCATED IN THE ABD, GENERAL NON-SPECIFIC. PAIN LEVEL FROM 5-9.
[2020-04-06 05:49] LABS: ALBUMIN 1.8 g/dL (3.5-5.0); BILIRUBIN,TOTAL 0.3 mg/dL (0.2-1.0); TOTAL PROTEIN, SERUM 6.5 g/dL (6.0-8.3)
[2020-04-06] MEDS: SODIUM CHLORIDE 0.9% 1000ML 1,000 ML IV SCH ×4 (05:59→20:28)
[2020-04-06 07:08] LABS: BASOPHILS % (AUTO) 0.2 % (0.0-5.0); EOSINOPHILS % (AUTO) 0.8 % (0.0-8.0); HEMATOCRIT 27.5 % (36-48); LYMPHOCYTES % (AUTO) 18.5 % (21.0-51.0); MEAN CORPUSCULAR HEMOGLOBIN 24.6 pg (27.0-33.0); MEAN CORPUSCULAR HGB CONC 32.4 g/dL (32.0-36.0); MONOCYTES % (AUTO) 5.2 % (3.0-13.0); NEUTROPHILS % (AUTO) 74.5 % (40.0-77.0); PLATELET COUNT (AUTO) 134 K/uL (130-400); RED BLOOD CELL COUNT(AUTO) 3.62 MIL/uL (4.00-5.50); RED CELL DISTRIBUTION WIDTH 16.6 % (11.0-15.5)
[2020-04-06 08:00] VITALS: BP 121/74
[2020-04-06] MEDS ORDERED: MAGNESIUM 2GM PREMIX 50ML 50 ML IV PRN (08:15)
[2020-04-06 09:34] LABS: CREATININE 0.5 mg/dL (0.5-1.5)
[2020-04-06] MEDS: SERTRALINE HCL 50 MG TABLET PO SCH (09:45)
[2020-04-06] MEDS: POTASSIUM CHLORIDE 10% ELIXIR 20 MEQ/15 ML UDCUP PO PRN ×4 (09:46→22:46)
[2020-04-06 12:00] VITALS: BP 119/59
[2020-04-06] MEDS: FAMOTIDINE/PF 20 MG/2 ML VIAL IV SCH ×2 (13:05→20:27)
[2020-04-06 16:00] VITALS: BP 126/64
[2020-04-06] MEDS: CEFTRIAXONE SODIUM 1 GM IV SCH (20:27)
[2020-04-06] MEDS: FENOFIBRATE NANOCRYSTALLIZED 145 MG TAB PO SCH (20:28)
[2020-04-06 21:11] VITALS: BP 132/58
[2020-04-06] MEDS: ZOLPIDEM TARTRATE 5 MG TAB PO SCH (22:34)
[2020-04-06 23:58] VITALS: BP 136/74
[2020-04-07] MEDS: POTASSIUM CHLORIDE 10% ELIXIR 20 MEQ/15 ML UDCUP PO PRN ×3 (00:24→18:09)
[2020-04-07] MEDS: HYDROMORPHONE 1 MG/1 ML AMP IVP PRN ×3 (02:58→11:57)
[2020-04-07] MEDS: SODIUM CHLORIDE 0.9% 1000ML 1,000 ML IV SCH ×3 (02:59→15:12)
[2020-04-07 03:50] VITALS: BP 130/92
[2020-04-07] MEDS: METRONIDAZOLE 500MG/100ML BAG 100 ML IV SCH ×3 (04:19→20:53)
[2020-04-07 05:39] LABS: ALBUMIN 1.9 g/dL (3.5-5.0); BILIRUBIN,DIRECT 0.1 mg/dL (0.0-0.3); BILIRUBIN,TOTAL 0.5 mg/dL (0.2-1.0); TOTAL PROTEIN, SERUM 5.9 g/dL (6.0-8.3)
[2020-04-07] MEDS: INSULIN HUMULIN R 100 UNIT/ML 3ML SQ SCH ×4 (06:14→20:59)
[2020-04-07] MEDS: FAMOTIDINE/PF 20 MG/2 ML VIAL IV SCH ×2 (07:44→21:01)
[2020-04-07] MEDS: SERTRALINE HCL 50 MG TABLET PO SCH (07:45)
[2020-04-07 08:00] VITALS: BP 144/87
[2020-04-07 12:00] VITALS: BP 131/80
[2020-04-07 16:00] VITALS: BP 130/85
[2020-04-07] MEDS: OXYCODONE/ACETAMIN 5/325MG TAB PO PRN (18:45)
[2020-04-07 20:34] VITALS: BP 142/74
[2020-04-07] MEDS: FENOFIBRATE NANOCRYSTALLIZED 145 MG TAB PO SCH (21:01)
[2020-04-07] MEDS: CEFTRIAXONE SODIUM 1 GM IV SCH (21:01)
[2020-04-07] MEDS: ZOLPIDEM TARTRATE 5 MG TAB PO SCH (21:04)
[2020-04-07 23:45] VITALS: BP 143/85
[2020-04-08] MEDS: OXYCODONE/ACETAMIN 5/325MG TAB PO PRN ×2 (00:12→09:23)
[2020-04-08] MEDS: SODIUM CHLORIDE 0.9% 1000ML 1,000 ML IV SCH ×5 (02:38→20:22)
[2020-04-08] MEDS: METRONIDAZOLE 500MG/100ML BAG 100 ML IV SCH ×3 (03:36→20:22)
[2020-04-08 03:46] VITALS: BP 143/85
[2020-04-08 05:18] LABS: BASOPHILS % (AUTO) 0.7 % (0.0-5.0); EOSINOPHILS % (AUTO) 1.3 % (0.0-8.0); HEMATOCRIT 27.8 % (36-48); LYMPHOCYTES % (AUTO) 25.4 % (21.0-51.0); MEAN CORPUSCULAR HEMOGLOBIN 24.1 pg (27.0-33.0); MEAN CORPUSCULAR HGB CONC 31.3 g/dL (32.0-36.0); MONOCYTES % (AUTO) 6.9 % (3.0-13.0); NEUTROPHILS % (AUTO) 61.9 % (40.0-77.0); PLATELET COUNT (AUTO) 165 K/uL (130-400); RED BLOOD CELL COUNT(AUTO) 3.61 MIL/uL (4.00-5.50); WHITE BLOOD COUNT (AUTO) 4.5 K/uL (4.8-10.8)
[2020-04-08 05:36] LABS: ALBUMIN 1.9 g/dL (3.5-5.0); BILIRUBIN,TOTAL 0.2 mg/dL (0.2-1.0); CREATININE 0.4 mg/dL (0.5-1.5); POTASSIUM 3.4 mmol/L (3.5-5.1)
[2020-04-08 05:48] LABS: BILIRUBIN,DIRECT 0.1 mg/dL (0.0-0.3)
[2020-04-08] MEDS: POTASSIUM CHLORIDE 10% ELIXIR 20 MEQ/15 ML UDCUP PO PRN ×2 (06:10→12:05)
[2020-04-08] MEDS: INSULIN HUMULIN R 100 UNIT/ML 3ML SQ SCH ×4 (06:53→20:38)
[2020-04-08 09:08] VITALS: BP 146/80
[2020-04-08] MEDS: FAMOTIDINE/PF 20 MG/2 ML VIAL IV SCH ×2 (09:13→20:23)
[2020-04-08] MEDS: SERTRALINE HCL 50 MG TABLET PO SCH (09:13)
[2020-04-08 11:00] VITALS: BP 153/95
[2020-04-08 16:00] VITALS: BP 128/74
[2020-04-08] MEDS: FENOFIBRATE NANOCRYSTALLIZED 145 MG TAB PO SCH (20:23)
[2020-04-08] MEDS: CEFTRIAXONE SODIUM 1 GM IV SCH (20:23)
[2020-04-08 21:15] VITALS: BP 149/90
[2020-04-08] MEDS: ZOLPIDEM TARTRATE 5 MG TAB PO SCH (22:27)
[2020-04-09 00:40] VITALS: BP 147/78
--- NOTE | 2020-04-09 02:40 | NUR ---
SLEPT Pt asleep in bed,respirations even,unlabored.
[2020-04-09] MEDS: SODIUM CHLORIDE 0.9% 1000ML 1,000 ML IV SCH ×3 (03:09→12:56)
[2020-04-09] MEDS: METRONIDAZOLE 500MG/100ML BAG 100 ML IV SCH ×2 (04:20→12:00)
[2020-04-09 04:25] VITALS: BP 153/95
[2020-04-09] MEDS: POTASSIUM CHLORIDE 10% ELIXIR 20 MEQ/15 ML UDCUP PO PRN ×2 (05:29→09:34)
[2020-04-09] MEDS: INSULIN HUMULIN R 100 UNIT/ML 3ML SQ SCH ×2 (06:00→12:10)
[2020-04-09] MEDS: SERTRALINE HCL 50 MG TABLET PO SCH (08:00)
--- NOTE | 2020-04-09 08:00 | NUR ---
PT AAO X 3 REVIEW PLAN O F CARE. DENIES ANY ABD PAIN. DIET . EATING WELL. DENIES ANY STOMACH DISCOMFORT. CALL LIGHT IN REACH...
[2020-04-09] MEDS: FAMOTIDINE/PF 20 MG/2 ML VIAL IV SCH (08:01)
[2020-04-09 08:51] VITALS: BP 150/83
[2020-04-09] MEDS ORDERED: POTASSIUM CHLORIDE 20 MEQ ERTAB PO ONE (11:45)
[2020-04-09 11:49] VITALS: BP 142/79
--- NOTE | 2020-04-09 15:15 | NUR ---
DISCHARGE SUMMARY. REVIEW WITH PT. PT STATED THAT SHE WOULD GET DR. SOLIS PER PRIVATE DR. AND WILL FOLLOW RECOMMENDATION FOR THE CONSULTATION OF DIABETIC ,AND DR ESTRADA. AWARE OF IMPORTANCE TO FOLLOW CARE. SL TO HER LAC . WAS DC, WITH NO HEMATOMA NOTED. A SM PRESSURE DRSG TO SITE. TOOK DIET WELL , WITH NO C/O OF ABD PAIN .
== END 2020-04-09 15:20 | disposition home or self-care (01) | DRG 439 ==
LOC: EDH 15:56 → EDHIP 19:51 → 3DH 22:03
PROVIDERS: ADMIT Internal Medicine; ATTEND Internal Medicine
DX: K85.90 Acute pancreatitis without necrosis or infection, unspecified (principal); E87.1 Hypo-osmolality and hyponatremia; Z68.41 Body mass index [BMI] 40.0-44.9, adult; E87.6 Hypokalemia; E78.1 Pure hyperglyceridemia; E11.9 Type 2 diabetes mellitus without complications; E66.01 Morbid (severe) obesity due to excess calories; E78.5 Hyperlipidemia, unspecified; E83.42 Hypomagnesemia; K43.9 Ventral hernia without obstruction or gangrene; E66.9 Obesity, unspecified; F41.9 Anxiety disorder, unspecified; Z80.1 Family history of malignant neoplasm of trachea, bronchus and lung; Z83.3 Family history of diabetes mellitus; Z90.49 Acquired absence of other specified parts of digestive tract
CPT/HCPCS: 36415; 74176; 74177; 80048; 80053; 80061; 80076; 81001; 81025; 82150; 82248; 82948; 83036; 83605; 83690; 83735; 84132; 84478; 85025; 85027; 93005; 99291; G0378; J0696; J1170; J1815; J2270; J2405; J3475; J3480; J3490; J7030; J7120; Q9967

== ENCOUNTER → 2021-03-25 | Emergency (ER) | payer OTHER ==
[~2021-03-25] VITALS: Ht 154.9 cm; Wt 103.9 kg
[~2021-03-25] MED LIST changes: +PREN-61 PO; +SERT-440 PO; -SERT100T12 PO
[2021-03-25 14:52] VITALS: BP 163/92
[2021-03-25 15:31] LABS: BASOPHILS % (AUTO) 0.3 % (0.0-5.0); EOSINOPHILS % (AUTO) 1.4 % (0.0-8.0); LYMPHOCYTES % (AUTO) 33.2 % (21.0-51.0); MEAN CORPUSCULAR HEMOGLOBIN 22.3 pg (27.0-33.0); MEAN CORPUSCULAR HGB CONC 31.6 g/dL (32.0-36.0); MEAN CORPUSCULAR VOLUME 70.6 fL (79-99); MONOCYTES % (AUTO) 5.7 % (3.0-13.0); NEUTROPHILS % (AUTO) 58.6 % (40.0-77.0); PLATELET COUNT (AUTO) 190 K/uL (130-400); RED BLOOD CELL COUNT(AUTO) 5.24 MIL/uL (4.00-5.50); RED CELL DISTRIBUTION WIDTH 18.6 % (11.0-15.5); WHITE BLOOD COUNT (AUTO) 8.6 K/uL (4.8-10.8)
[2021-03-25 20:24] VITALS: BP 146/88
== END | disposition home or self-care (01) ==
LOC: EDH 14:51
DX: O20.0 Threatened abortion (principal); Z3A.01 Less than 8 weeks gestation of pregnancy
CPT/HCPCS: 36415; 76817; 84702; 84703; 85025; 86850; 86900; 86901

== ENCOUNTER 2021-10-30 10:02 | Observation (INO) | payer OTHER, MEDICAID ==
[~2021-10-30] VITALS: Ht 154.9 cm; Wt 112.9 kg
[2021-10-30 10:57] LABS: APPEARANCE,URINE Cloudy (CLEAR); BILIRUBIN,URINE Negative (NEGATIVE); COLOR,URINE Yellow (YELLOW); GLUCOSE, URINE (UA) Negative (NEGATIVE); KETONES,URINE Negative (NEGATIVE); LEUKOCYTE ESTERASE ,URINE Trace (NEGATIVE); NITRATE,URINE Negative (NEGATIVE); OCCULT BLOOD,URINE Nonhemolyzed Trace (NEGATIVE); PH,URINE 6.5 (5.0-8.0); PROTEIN,URINE Negative (NEGATIVE)
[2021-10-30 11:00] LABS: BASOPHILS % (AUTO) 0.2 % (0.0-5.0); EOSINOPHILS % (AUTO) 1.2 % (0.0-8.0); HEMATOCRIT 36.9 % (36-48); LYMPHOCYTES % (AUTO) 17.9 % (21.0-51.0); MEAN CORPUSCULAR HGB CONC 32.8 g/dL (32.0-36.0); MEAN CORPUSCULAR VOLUME 82.4 fL (79-99); MONOCYTES % (AUTO) 4.5 % (3.0-13.0); NEUTROPHILS % (AUTO) 75.6 % (40.0-77.0); PLATELET COUNT (AUTO) 185 K/uL (130-400); RED BLOOD CELL COUNT(AUTO) 4.48 MIL/uL (4.00-5.50); RED CELL DISTRIBUTION WIDTH 14.8 % (11.0-15.5); WHITE BLOOD COUNT (AUTO) 8.8 K/uL (4.8-10.8)
[2021-10-30 11:01] LABS: AMPHET/METH SCREEN,URINE NEGATIVE (NEGATIVE); BACTERIA,URINE Rare /HPF (None Seen); BARBITURATE SCREEN, URINE NEGATIVE (NEGATIVE); BENZODIAZEPINES SCREEN,URINE NEGATIVE (NEGATIVE); CANNABINOID SCREEN,URINE NEGATIVE (NEGATIVE); COCAINE SCREEN,URINE NEGATIVE (NEGATIVE); OPIATE SCREEN,URINE NEGATIVE (NEGATIVE); PHENCYCLIDINE SCREEN,URINE NEGATIVE (NEGATIVE); RBC,URINE 0-1 /HPF (0-1); SQUAMOUS EPITHELIAL CELL,UR Rare /HPF (0-2); WBC,URINE 0-1 /HPF (0-1)
[2021-10-30 11:09] LABS: ALBUMIN 2.7 g/dL (3.5-5.0); BILIRUBIN,TOTAL 0.2 mg/dL (0.2-1.0); CREATININE 0.5 mg/dL (0.5-1.5); POTASSIUM 3.3 mmol/L (3.5-5.1); URIC ACID 4.4 mg/dL (2.6-7.2)
[2021-10-30 11:13] LABS: INR 0.98 (0.85-1.15); PROTHROMBIN TIME 10.7 SEC (9.6-11.6)
[2021-10-30 11:14] LABS: PARTIAL THROMBOPLASTIN TIME 28.1 SEC (26.3-35.5)
== END 2021-10-30 12:00 | disposition home or self-care (01) ==
LOC: LDH 10:02
PROVIDERS: ADMIT Obstetrics & Gynecology; ATTEND Obstetrics & Gynecology
DX: O26.893 Other specified pregnancy related conditions, third trimester (principal); R03.0 Elevated blood-pressure reading, without diagnosis of hypertension; R51.9 Headache, unspecified; Z3A.35 35 weeks gestation of pregnancy; Z79.899 Other long term (current) drug therapy
CPT/HCPCS: 36415; 59025; 80053; 80305; 81001; 84550; 85025; 85384; 85610; 85730; A4351; G0378 ×2; G0379

== ENCOUNTER 2021-11-06 11:12 | Observation (INO) | payer OTHER, MEDICAID ==
[2021-11-06 13:01] LABS: BASOPHILS % (AUTO) 0.3 % (0.0-5.0); HEMATOCRIT 37.2 % (36-48); LYMPHOCYTES % (AUTO) 19.1 % (21.0-51.0); MEAN CORPUSCULAR HEMOGLOBIN 27.9 pg (27.0-33.0); MEAN CORPUSCULAR HGB CONC 33.3 g/dL (32.0-36.0); MEAN CORPUSCULAR VOLUME 83.6 fL (79-99); MONOCYTES % (AUTO) 4.9 % (3.0-13.0); NEUTROPHILS % (AUTO) 74.3 % (40.0-77.0); PLATELET COUNT (AUTO) 204 K/uL (130-400); RED BLOOD CELL COUNT(AUTO) 4.45 MIL/uL (4.00-5.50); RED CELL DISTRIBUTION WIDTH 15.2 % (11.0-15.5); WHITE BLOOD COUNT (AUTO) 9.5 K/uL (4.8-10.8)
[2021-11-06 13:11] LABS: APPEARANCE,URINE Turbid (CLEAR); BILIRUBIN,URINE Negative (NEGATIVE); COLOR,URINE Yellow (YELLOW); GLUCOSE, URINE (UA) Negative (NEGATIVE); KETONES,URINE Trace mg/dL (NEGATIVE); LEUKOCYTE ESTERASE ,URINE Negative (NEGATIVE); NITRATE,URINE Negative (NEGATIVE); OCCULT BLOOD,URINE Negative (NEGATIVE); PROTEIN,URINE Negative (NEGATIVE)
[2021-11-06 13:17] LABS: ALBUMIN 2.5 g/dL (3.5-5.0); BILIRUBIN,TOTAL 0.2 mg/dL (0.2-1.0); CREATININE 0.6 mg/dL (0.5-1.5); POTASSIUM 3.7 mmol/L (3.5-5.1); TOTAL PROTEIN, SERUM 6.7 g/dL (6.0-8.3); URIC ACID 4.5 mg/dL (2.6-7.2)
[2021-11-06 13:18] LABS: INR 0.94 (0.85-1.15); PROTHROMBIN TIME 10.3 SEC (9.6-11.6)
[2021-11-06 13:19] LABS: PARTIAL THROMBOPLASTIN TIME 29.1 SEC (26.3-35.5)
[2021-11-06 13:28] LABS: AMORPHOUS SEDIMENT,UR Moderate /LPF (None Seen); BACTERIA,URINE Few /HPF (None Seen); RBC,URINE 0-1 /HPF (0-1); SQUAMOUS EPITHELIAL CELL,UR Rare /HPF (0-2); WBC,URINE 0-1 /HPF (0-1)
[2021-11-07 15:34] LABS: CREATININE,SERUM FOR CRCL 0.6 mg/dL (0.6-1.3)
[2021-11-07 15:56] LABS: COLLECTION PERIOD,URINE 24 HR; TOTAL VOLUME 24HRS,URINE 1000 mL; TPROTEIN TIMED,URINE 24 mg/dL; TPROTEIN U,24HR CALC 240 mg/24HR (0-165)
== END 2021-11-06 17:26 | disposition home or self-care (01) ==
LOC: LDH 11:12 → UNDOADMOB 11:12 → LDH 11:22
PROVIDERS: ADMIT Obstetrics & Gynecology; ATTEND Obstetrics & Gynecology
DX: O26.893 Other specified pregnancy related conditions, third trimester (principal); R03.0 Elevated blood-pressure reading, without diagnosis of hypertension; R60.0 Localized edema; O24.113 Pre-existing type 2 diabetes mellitus, in pregnancy, third trimester; O99.323 Drug use complicating pregnancy, third trimester; F12.90 Cannabis use, unspecified, uncomplicated; Z3A.36 36 weeks gestation of pregnancy
CPT/HCPCS: 36415; 59025; 76805; 76819; 80053; 81001; 82575; 84156; 84550; 85025; 85384; 85610; 85730; G0378 ×6; G0379

== ENCOUNTER 2021-11-10 13:33 | Inpatient (IN) | payer OTHER, MEDICAID ==
[~2021-11-10] VITALS: Ht 152.4 cm; Wt 114.8 kg
[2021-11-10] MEDS ORDERED: LACTATED RINGERS 1000ML 1,000 ML IV PRN (14:30)
[2021-11-10] MEDS ORDERED: AMPICILLIN 2GM+NS 100ML 100 ML IV SCH (14:30)
[2021-11-10 14:46] VITALS: BP 134/62
[2021-11-10 14:57] LABS: APPEARANCE,URINE Clear (CLEAR); BILIRUBIN,URINE Negative (NEGATIVE); COLOR,URINE Yellow (YELLOW); GLUCOSE, URINE (UA) Negative (NEGATIVE); KETONES,URINE Negative (NEGATIVE); LEUKOCYTE ESTERASE ,URINE Negative (NEGATIVE); NITRATE,URINE Negative (NEGATIVE); OCCULT BLOOD,URINE Negative (NEGATIVE); PROTEIN,URINE Negative (NEGATIVE)
[2021-11-10 15:04] LABS: HEMATOCRIT 38.1 % (36-48); MEAN CORPUSCULAR HEMOGLOBIN 27.2 pg (27.0-33.0); MEAN CORPUSCULAR HGB CONC 33.1 g/dL (32.0-36.0); MEAN CORPUSCULAR VOLUME 82.1 fL (79-99); RED BLOOD CELL COUNT(AUTO) 4.64 MIL/uL (4.00-5.50); RED CELL DISTRIBUTION WIDTH 15.1 % (11.0-15.5); WHITE BLOOD COUNT (AUTO) 12.7 K/uL (4.8-10.8)
[2021-11-10 15:09] LABS: BACTERIA,URINE Few /HPF (None Seen); MUCUS,URINE Few LPF (None Seen); RBC,URINE 0-1 /HPF (0-1); SQUAMOUS EPITHELIAL CELL,UR Few /HPF (0-2); WBC,URINE 0-1 /HPF (0-1)
[2021-11-10 15:24] LABS: CREATININE 0.5 mg/dL (0.5-1.5); POTASSIUM 3.6 mmol/L (3.5-5.1)
[2021-11-10 15:26] LABS: PARTIAL THROMBOPLASTIN TIME 27.3 SEC (26.3-35.5)
[2021-11-10 15:29] LABS: ALBUMIN 2.5 g/dL (3.5-5.0); BILIRUBIN,TOTAL 0.1 mg/dL (0.2-1.0); TOTAL PROTEIN, SERUM 6.7 g/dL (6.0-8.3); URIC ACID 4.4 mg/dL (2.6-7.2)
[2021-11-10 15:39] LABS: INR 0.96 (0.85-1.15)
[2021-11-10 15:51] LABS: FIBRINOGEN > 450 mg/dL (180-350)
[2021-11-10] MEDS ORDERED: LACTATED RINGERS 500 ML 500 ML IV PRN (17:00)
[2021-11-10] MEDS ORDERED: EPHEDRINE SULFATE 50 MG/ML AMPULE IVP PRN (17:00)
[2021-11-10] MEDS ORDERED: NALOXONE HCL 0.4 MG/1 ML ML IV PRN (17:00)
[2021-11-10 17:25] LABS: AMPHET/METH SCREEN,URINE NEGATIVE (NEGATIVE); BARBITURATE SCREEN, URINE NEGATIVE (NEGATIVE); BENZODIAZEPINES SCREEN,URINE NEGATIVE (NEGATIVE); CANNABINOID SCREEN,URINE NEGATIVE (NEGATIVE); COCAINE SCREEN,URINE NEGATIVE (NEGATIVE); OPIATE SCREEN,URINE NEGATIVE (NEGATIVE); PHENCYCLIDINE SCREEN,URINE NEGATIVE (NEGATIVE)
[2021-11-10] MEDS ORDERED: DINOPROSTONE 10 MG VAGINAL SUPP VG SCH (17:30)
[2021-11-10] MEDS: AMPICILLIN 1GM+NS 50ML 50 ML IV SCH ×2 (18:13→22:58)
[2021-11-10] MEDS ORDERED: ACETAMINOPHEN 325 MG TAB PO PRN (23:30)
[2021-11-11] MEDS: AMPICILLIN 1GM+NS 50ML 50 ML IV SCH ×5 (02:25→23:04)
[2021-11-11] MEDS ORDERED: OXYTOCIN-LR 20 UNITS/1000 ML 1,000 ML IV SCH (05:00)
[2021-11-11] MEDS: OXYTOCIN-LR 20 UNITS/1000 ML 1,000 ML IV SCH (06:30)
[2021-11-11] MEDS ORDERED: MAGNESIUM SULFATE 40GM/1000ML 1,000 ML IV ONE (08:19)
[2021-11-11] MEDS ORDERED: MAGNESIUM 4GM PREMIX 100ML 100 ML IV ONE (08:19)
[2021-11-11] MEDS ORDERED: MAGNESIUM 4GM PREMIX 100ML 100 ML IV PRN (08:30)
[2021-11-11] MEDS ORDERED: LACTATED RINGERS 1000ML 1,000 ML IV SCH (08:30)
[2021-11-11] MEDS ORDERED: MAGNESIUM SULFATE 40GM/1000ML 1,000 ML IV PRN (08:30)
[2021-11-11] MEDS ORDERED: CALCIUM GLUC 1GM/10ML VIAL IV PRN (08:30)
[2021-11-11 09:04] LABS: BASOPHILS % (AUTO) 0.2 % (0.0-5.0); HEMATOCRIT 37.6 % (36-48); LYMPHOCYTES % (AUTO) 23.7 % (21.0-51.0); MEAN CORPUSCULAR HEMOGLOBIN 27.4 pg (27.0-33.0); MONOCYTES % (AUTO) 5.4 % (3.0-13.0); NEUTROPHILS % (AUTO) 69.1 % (40.0-77.0); PLATELET COUNT (AUTO) 206 K/uL (130-400); RED BLOOD CELL COUNT(AUTO) 4.53 MIL/uL (4.00-5.50); RED CELL DISTRIBUTION WIDTH 15.4 % (11.0-15.5)
[2021-11-11 09:20] LABS: ALBUMIN 2.5 g/dL (3.5-5.0); BILIRUBIN,DIRECT 0.1 mg/dL (0.0-0.3); BILIRUBIN,TOTAL 0.4 mg/dL (0.2-1.0); CREATININE 0.4 mg/dL (0.5-1.5); MAGNESIUM 3.9 mg/dL (1.80-2.40); TOTAL PROTEIN, SERUM 6.6 g/dL (6.0-8.3); URIC ACID 5.2 mg/dL (2.6-7.2)
[2021-11-11 09:27] LABS: INR 0.96 (0.85-1.15)
[2021-11-11 09:29] LABS: PARTIAL THROMBOPLASTIN TIME 23.8 SEC (26.3-35.5)
[2021-11-11] MEDS ORDERED: MEPERIDINE-PF 50 MG/ML SYG ONE (09:45)
[2021-11-11] MEDS ORDERED: PROMETHAZINE HCL 25 MG/ML 1ML AMPULE IM PRN (10:00)
[2021-11-11] MEDS ORDERED: MEPERIDINE-PF 50 MG/ML SYG IVP PRN (10:00)
[2021-11-11] MEDS: ROPIVACAINE 0.2% 100ML VIAL 100 ML EP SCH ×2 (14:44→21:25)
[2021-11-12] MEDS: AMPICILLIN 1GM+NS 50ML 50 ML IV SCH ×3 (02:24→10:10)
[2021-11-12] MEDS: OXYTOCIN-LR 20 UNITS/1000 ML 1,000 ML IV SCH ×2 (03:11→07:48)
[2021-11-12] MEDS: ROPIVACAINE 0.2% 100ML VIAL 100 ML EP SCH (06:56)
[2021-11-12] MEDS ORDERED: LIDOCAINE 2%-EPI 1:200,000 20 ML VIAL IJ ONE (07:24)
[2021-11-12] MEDS ORDERED: FENTANYL CITRATE PF 50 MCG/1 ML 2ML VIAL ONE (08:04)
[2021-11-12] MEDS ORDERED: OXYTOCIN 10 USP UNITS/ML ONE (10:29)
[2021-11-12] MEDS ORDERED: MISOPROSTOL 200 MCG TABLET ONE (10:30)
[2021-11-12] MEDS ORDERED: LIDOCAINE HCL 1% 20 ML VIAL ONE (11:46)
[2021-11-12] MEDS ORDERED: OXYTOCIN 10 USP UNITS/ML IV PRN (12:30)
[2021-11-12] MEDS ORDERED: CALCIUM GLUC 1GM/10ML VIAL IV PRN (12:30)
[2021-11-12] MEDS ORDERED: OXYTOCIN-LR 20 UNITS/1000 ML 1,000 ML IV SCH ×2 (12:30→13:00)
[2021-11-12] MEDS ORDERED: MAGNESIUM 4GM PREMIX 100ML 100 ML IV PRN (12:30)
[2021-11-12] MEDS ORDERED: LACTATED RINGERS 1000ML 1,000 ML IV SCH (12:30)
[2021-11-12] MEDS ORDERED: MAGNESIUM SULFATE 40GM/1000ML 1,000 ML IV PRN (12:30)
[2021-11-12] MEDS ORDERED: MEASLES/MUMPS/RUBELLA VACCINE, LIVE 0.5 ML/VIAL SQ PRN (13:00)
[2021-11-12] MEDS ORDERED: WITCH HAZEL 1 PAD TP PRN (13:00)
[2021-11-12] MEDS ORDERED: DIPH,PERTUSS(ACELL),TET VAC/PF 0.5 ML VIAL IM PRN (13:00)
[2021-11-12] MEDS ORDERED: IBUPROFEN 600 MG TABLET PO PRN (13:00)
[2021-11-12] MEDS ORDERED: ACETAMINOPHEN 325 MG TAB PO PRN (13:00)
[2021-11-12] MEDS ORDERED: ACETAMINOPHEN WITH CODEINE 1 TAB TAB PO PRN (13:00)
[2021-11-12] MEDS ORDERED: BENZOCAINE/LANOLIN/ALOE VERA 60 ML AEROSOL TP PRN (13:00)
[2021-11-12] MEDS ORDERED: LANOLIN 30GM OINTMENT TP PRN (13:00)
[2021-11-12] MEDS ORDERED: HYDRALAZINE 20MG/ML VIAL ONE (14:55)
[2021-11-12] MEDS ORDERED: HYDRALAZINE 20MG/ML VIAL IV ONE (15:00)
[2021-11-13 06:36] LABS: HEMATOCRIT 32.4 % (36-48); MEAN CORPUSCULAR HEMOGLOBIN 28.2 pg (27.0-33.0); MEAN CORPUSCULAR VOLUME 85.3 fL (79-99); RED BLOOD CELL COUNT(AUTO) 3.8 MIL/uL (4.00-5.50); RED CELL DISTRIBUTION WIDTH 15.7 % (11.0-15.5)
[2021-11-13 10:05] VITALS: BP 142/87
[2021-11-13] MEDS ORDERED: NPH,100V SQ ×2 (10:26)
[2021-11-13] MEDS ORDERED: INSU100V3 SQ (10:26)
[2021-11-13 16:20] VITALS: BP 120/74
[2021-11-13 16:30] VITALS: BP 129/74
[2021-11-13] MEDS ORDERED: INSULIN HUMULIN R 100 UNIT/ML 3ML SQ SCH (16:30)
[2021-11-13] MEDS ORDERED: DIPH,PERTUSS(ACELL),TET VAC/PF 0.5 ML VIAL IM ONE (18:36)
[2021-11-13 19:26] VITALS: BP 128/75
[2021-11-13 23:11] VITALS: BP 134/79
[2021-11-14 03:35] VITALS: BP 121/57
[2021-11-14 08:00] VITALS: BP 131/73
[2021-11-14 12:00] VITALS: BP 124/65
[2021-11-14] MEDS ORDERED: DOCU-116 PO (13:04)
[2021-11-14] MEDS ORDERED: IBUP-2077 PO (13:05)
== END 2021-11-14 13:45 | disposition home or self-care (01) | DRG 806 ==
LOC: LDH 13:33 → WSH 11-13 09:55
PROVIDERS: ADMIT Obstetrics & Gynecology; ATTEND Obstetrics & Gynecology
PROC: 10E0XZZ Delivery of Products of Conception, External Approach (ICD-10-PCS; principal; 2021-11-12)
PROC: 0KQM0ZZ Repair Perineum Muscle, Open Approach (ICD-10-PCS; 2021-11-12)
DX: O13.4 Gestational [pregnancy-induced] hypertension without significant proteinuria, complicating childbirth (principal); O41.03X0 Oligohydramnios, third trimester, not applicable or unspecified; Z37.0 Single live birth; O69.81X0 Labor and delivery complicated by cord around neck, without compression, not applicable or unspecified; O99.214 Obesity complicating childbirth; O24.92 Unspecified diabetes mellitus in childbirth; O99.824 Streptococcus B carrier state complicating childbirth; O70.1 Second degree perineal laceration during delivery; Z3A.36 36 weeks gestation of pregnancy
CPT/HCPCS: 36415; 80053; 80076; 80305; 81001; 81003; 82565; 82947; 82948; 83735; 84520; 84550; 85025; 85027; 85370; 85384; 85610; 85730; 86592; 86701; 86850; 86900; 86901; 87340; 87390; 90715; A4314; G0378; J0290; J0360; J2175; J2590; J2795; J3010; J3475; J3490; J7120